=== PATIENT | male | born 1995 | race Caucasian/White ===

== ENCOUNTER 2018-08-19 05:39 | Emergency (ER) | payer BC, SELFPAY ==
[2018-08-19 05:41] VITALS: BP 128/87; PULSE 64; RESP 16; TEMP 36.8; O2SAT 100; BMI 21.1
--- NOTE | 2018-08-19 05:53 | ED.DEP ---
ED Disposition - Plan for ED Patient: Chief Complaint: Eye Problem Instructions: Treating Blepharitis: Self-Care, ED Inflammation Eyelid Referrals: Jose Bourgeois MD [Primary Care Provider] -
--- NOTE | 2018-08-19 05:58 | ED.VISSUMM ---
- ER Visit Summary Date of Service: 08/19/18 Chief Complaint: Left eyelid redness and swelling History of Present Illness: The patient is a 22 M who presents with redness and swelling of the left upper eyelid. This is been present for about 5 days. No history of prior similar symptoms. He complains of pain with palpation only and otherwise has no pain. No visual changes. No pain in the eye itself. Physical Examination: Afebrile vitals normal Patient has erythema and edema of the left upper eyelid and slightly of the lower eyelid extraocular motion is intact without pain or palsy anterior chambers deep and quiet pupils equally round and reactive to light conjunctive are normal no injection no discharge Test Results: Not indicated Emergency Department Course and Treatment: History and examination are consistent with blepharitis. He was instructed on home care. He was given ophthalmic bacitracin to apply to the eyelid margins. He understands to return for new or worsening symptoms. Patient discharged. Treatment Plan: [] Disposition: Discharge Impression: Blepharitis This note was generated with [employer] dictation software. It may contain incorrect words, spelling, and punctuation that were not noted in review of the chart prior to signing ED Disposition - Plan for ED Patient: Chief Complaint: Eye Problem Instructions: Treating Blepharitis: Self-Care, ED Inflammation Eyelid Prescriptions: Bacitracin Opthalmic 1 applic LEFT EYE Q4 #1 opth.tube Referrals: Jose Bourgeois MD [Primary Care Provider] -
[2018-08-19 06:06] VITALS: BP 128/87; PULSE 64; RESP 16; O2SAT 97
--- OUTSIDE RECORDS SUMMARY | 2018-10-23 09:07 | XMS RPT_ITS ---
:1995 Author Organization [facility] Care Team Providers Name Role Phone Jose Bourgeois Primary Care Unavailable Mariusz Szymanski Attending Unavailable PROBLEMS PROBLEMS No Problem Records FoundPROCEDURES PROCEDURES No Procedure Records FoundRESULTS RESULTS EMERGENCY DEPARTMENT Observed: 08/19/2018 Status: F Source: [place] SUMMARY 6:00 AM [facility] REPOSITORY [facility] Medical Records Department [address] [facility] [place] [address] Emergency Department Summary 08/19/18 0558 MR#: [id number] Acct: [id number] Name: ANGELES RUBIO Rep #: [id number] : 1995 22 From: Mariusz Szymanski MD PCP: Jose Bourgeois MD Status: PRE ER - ER Visit Summary Date of Service: 08/19/18 Chief Complaint: Left eyelid redness and swelling History of Present Illness: The patient is a 22 M who presents with redness and swelling of the left upper eyelid. This is been present for about 5 days. No history of prior similar symptoms. He complains of pain with palpation only and otherwise has no pain. No visual changes. No pain in the eye itself. Physical Examination: Afebrile vitals normal Patient has erythema and edema of the left upper eyelid and slightly of the lower eyelid extraocular motion is intact without pain or palsy anterior chambers deep and quiet pupils equally round and reactive to light conjunctive are normal no injection no discharge Test Results: Not indicated Emergency Department Course and Treatment: History and examination are consistent with blepharitis. He was instructed on home care. He was given ophthalmic bacitracin to apply to the eyelid margins. He understands to return for new or worsening symptoms. Patient discharged. Treatment Plan: [] Disposition: Discharge Impression: Blepharitis This note was generated with [employer] dictation software. It may contain incorrect words, spelling, and punctuation that were not noted in review of the chart prior to signing ED Disposition - Plan for ED Patient: Chief Complaint: Eye Problem Instructions: Treating Blepharitis: Self-Care, ED Inflammation Eyelid Prescriptions: Bacitracin Opthalmic 1 applic LEFT EYE Q4 #1 opth.tube Referrals: Jose Bourgeois MD [Primary Care Provider] - What to do if you have Problems For any increased pain, shortness of breath, bleeding, nausea or vomiting, chest pain, or any unexpected problems, contact your Primary Care Provider. Call [facility] ([phone]) or report to the closest Emergency Room. Call 911 if necessary. 08/19/18 0600 <Electronically signed by Mariusz Szymanski MD> Date Mariusz Szymanski MD Cosigner Signature (If Indicated): Date CC: Jose Bourgeois MD DISCHARGE INSTRUCTION Observed: 08/19/2018 Status: F Source: [place] 5:55 AM [facility] REPOSITORY [facility] Medical Records Department [address] [place] [address] Discharge Instruction 08/19/18 0553 MR#: [id number] Acct: [id number] Name: ANGELES RUBIO Rep #: [id number] : 1995 22 From: Mariusz Szymanski MD PCP: Jose Bourgeois MD Status: PRE ER ED Disposition - Plan for ED Patient: Chief Complaint: Eye Problem Instructions: Treating Blepharitis: Self-Care, ED Inflammation Eyelid Referrals: Jose Bourgeois MD [Primary Care Provider] - What to do if you have Problems For any increased pain, shortness of breath, bleeding, nausea or vomiting, chest pain, or any unexpected problems, contact your Primary Care Provider. Call [facility] ([phone]) or report to the closest Emergency Room. Call 911 if necessary. 08/19/18 0555 <Electronically signed by Mariusz Szymanski MD> Date Mariusz Szymanski MD Cosigner Signature (If Indicated): Date CC: Jose Bourgeois MD [facility]CO Observed: 10/12/2017 Status: COMPLETED Source: [place] 12:00 AM [facility] REPOSITORY Letter Text [facility] [address] [facility] [address] October 12, 2017 RE: Angeles Rubio [address] [facility] [address] 1995 Dear Parent/Guardian of Angeles, We have tried to contact you in regards to your need for a routine physical. Our efforts to reach you have been unsuccessful. Please call [phone] to coordinate your child's plan of care. Thank you and we look forward to talking with you. Sincerely, Primary [facility] Pediatric[facility] ALLERGIES ALLERGIES DATE TYPE / CODE NAME / CODE REACTION SEVERITY SOURCE 08/19/2018 Drug No Known Unknown Horace [facility] Allergy/4160 Allergies/F00 [facility] [address](SNOMED [id number](RXNOR Repository CT) M) ENCOUNTERS ENCOUNTERS ADMIT/DISCHARGE ACCOUNT ADMITTING ENCOUNTER LOCATION SOURCE NUMBER CLASS 08/19/2018/ [id number] Emergency Horace Vu 9 [facility] ing:ED Repository PAYERS PAYERS ENCOUNTER GUARANTOR PAYER SUBSCRIBER SOURCE 08/19/2018 ANGELES [facility] Primary KYAW [id number] Insurance:ANTHEMPolic CROSBYDOB: Community [address] [place] y [place]: [id number] [id number] Repository [address]Bsq: 330) Date:[id number] [phone] () [id number] [address]BN: 08/19/2018 Secondary NOT GIVENUNK Horace Insurance:SELF PAY [facility]: Effective Repository Date:2018-08-19
== END 2018-08-19 06:32 | disposition home or self-care (01) ==
PROVIDERS: Emergency Provider Emergency Medicine; Family Provider Pediatrics; PCP Pediatrics
DX: H01.004 Unspecified blepharitis left upper eyelid (principal)
CPT/HCPCS: 99283

== ENCOUNTER 2020-06-12 20:05 | Emergency (ER) | payer BC, SELFPAY ==
[2020-06-12 20:06] VITALS: BP 132/65; PULSE 89; RESP 16; TEMP 36.2; O2SAT 99; BMI 20.9
--- NOTE | 2020-06-12 20:26 | ED.DCSUM_ITS ---
- ER Visit Summary Date of Service: 06/12/20 Chief Complaint: Diarrhea History of Present Illness: The patient is a 24 M who presents with diarrhea that is been constant for the past 2 days. Patient also admits to diffuse abdominal cramping. Patient states he got worse when he was eating whole-wheat bread. Patient states nothing seems to help. Patient admits to diarrhea. Patient denies any melena or hematochezia. Patient admits to nausea but denies any vomiting. Patient admits to subjective fevers. Patient states he was sent home from work because he had a fever but was not told what his temperature was. Patient denies any urinary complaints. Patient denies any chest pain or shortness of breath. Physical Examination: Vital signs are stable. Patient is afebrile. Patient is in no acute distress. Oral mucosa is pink and moist. Neck is supple. Trachea is midline. There is no JVD. Heart was regular rate and rhythm. Lungs are clear and equal bilaterally. Abdomen is soft. Bowel sounds are normal. There is mild diffuse tenderness. There is no rebound or guarding noted. Cranial nerves II through XII are intact. There are no focal motor or sensory deficits. Test Results: CBC and comprehensive metabolic profile were obtained and were essentially within normal limits. Emergency Department Course and Treatment: Patient was given IV fluids and Zofran here. Patient was feeling better on reevaluation. Patient was advised of his findings. Patient was instructed to start with a bland diet and advance as tolerated. Patient was instructed to return if worse in any way. Patient understood and was agreeable with the plan. All questions were answered. Disposition: Discharge home Impression: Diarrhea This note was generated with [employer] dictation software. It may contain incorrect words, spelling, and punctuation that were not noted in review of the chart prior to signing ED Disposition - Plan for ED Patient: Disposition: Home or Assisted Living Diagnosis: Diarrhea Instructions: ED Diarrhea Viral Referrals: Jose Bourgeois MD [Primary Care Provider] - 5-7 Days
[2020-06-12] MEDS: 0.9% Normal Saline 1,000 ML 1000 ML IV (20:35)
[2020-06-12] MEDS: Ondansetron 4 MG/2 ML Vial IV (20:35)
[2020-06-12 20:42] LABS: Absolute Lymphocyte Count 2.18 X10^3/uL (0.83-4.51); Absolute Neutrophil Count 6.2 X10^3/uL (2.0-7.7); Basophil# 0.05 X10^3/uL; Basophil% 0.5 % (0-1); Eosinophil# 0.19 X10^3/uL; Hematocrit 40.7 % (40-54); Hemoglobin 13.7 g/dL (13.0-16.5); Lymphocyte # 2.18 X10^3/ul (4.0); Lymphocyte % 23.3 % (19-41); Mean Corp Hgb Conc 33.7 g/dL (32-36); Mean Corpuscular Hgb 28.8 pg (27.0-32.0); Mean Corpuscular Volume 85.7 fL (80-94); Mean Platelet Vol. 11.1 fl (6.2-12.0); Monocyte# 0.78 X10^3/uL; Monocyte% 8.3 % (0-10); NRBC Flagged by Analyzer 0 % (0-5); Neutrophil # 6.15 X10^3/uL (2.7-7.7); Neutrophil % 65.7 % (47-70); POSITIVE MORPHOLOGY YES; Platelet Count 188 K/mm3 (150-450); RBC Distribution Width CV 11.8 % (11.6-14.6); RBC Distribution Width SD 36.3 fl (35.1-43.9); Red Blood Count 4.75 M/mm3 (4.6-6.2); White Blood Count 9.4 K/mm3 (4.4-11.0)
[2020-06-12 20:43] LABS: Differential Indicated SCAN CRITERIA MET
[2020-06-12 21:04] LABS: ALB/GLOB Ratio 1.1 RATIO (0.9-2.4); AST(SGOT) 12 U/L (15-37); Alanine Aminotransfer ALT/SGPT 22 U/L (16-61); Alkaline Phosphatase 83 U/L (45-117); Anion Gap 5 (5-15); BUN 14 mg/dL (7-18); BUN/Creat Ratio 14.2 RATIO (10-20); Calcium,Total 9.1 mg/dL (8.5-10.1); Chloride 108 mmol/L (98-107); Creatinine, Serum 0.99 mg/dL (0.70-1.30); EST Glomerular Filtration Rate 100 mL/min (>60); Est Glom Filt Rate - Afr Amer 121 mL/min (>60); Estimated Creatinine Clearance 119.03 ml/min; Globulin 3.5 g/dL (2.2-4.2); Glucose 103 mg/dL (74-106); Lipase 125 U/L (73-393); Protein, Total 7.5 g/dL (6.4-8.2); Sodium Level 141 mmol/L (136-145)
[2020-06-12 21:30] LABS: Differential Comment SCANNED
[2020-06-12 22:26] VITALS: BP 132/82; PULSE 81; RESP 18; O2SAT 98
== END 2020-06-12 22:26 | disposition home or self-care (01) ==
PROVIDERS: Emergency Provider Emergency Medicine; PCP Pediatrics
DX: R19.7 Diarrhea, unspecified (principal); R10.84 Generalized abdominal pain; R11.0 Nausea
CPT/HCPCS: 80053; 83690; 85025; 96361; 96374; 99283; J7030; A4216; J2405